=== PATIENT | male | born 1950 | race Caucasian/White ===

== ENCOUNTER 2017-02-27 12:01 | Emergency (ER) | payer MEDICARE ==
[2017-02-27] MEDS ORDERED: SODIUM CHLORIDE FLUSH 0.9% 10 ML SYRINGE IVP ONE (12:36)
[2017-02-27 12:49] LABS: BASOPHILS % (AUTO) 0.7 %; EOSINOPHILS # (AUTO) 0.2 10^3/uL (0.0-0.7); EOSINOPHILS % (AUTO) 7.7 %; HCT - HEMATOCRIT 44.5 % (42.0-52.0); HGB - HEMOGLOBIN 15.2 g/dL (14.0-18.0); LYMPHOCYTES # (AUTO) 0.8 10^3/uL (1.5-3.5); LYMPHOCYTES % (AUTO) 25.7 %; MEAN CORPUSCULAR HEMOGLOBIN 32.2 pg (27.0-31.0); MEAN CORPUSCULAR HGB CONC 34.1 g/dL (32.0-36.0); MEAN CORPUSCULAR VOLUME 94.4 fL (80.0-94.0); MEAN PLATELET VOLUME 8.6 fL (7.4-11.4); MONOCYTES # (AUTO) 0.4 10^3/uL (0.0-1.0); MONOCYTES % (AUTO) 12.2 %; NEUTROPHILS # (AUTO) 1.7 10^3/uL (1.5-6.6); NEUTROPHILS % (AUTO) 53.7 %; NUCLEATED RED BLOOD CELLS AUTO 0.1 /100WBC; RED BLOOD COUNT 4.71 10^6/uL (4.70-6.10); RED CELL DISTRIBUTION WIDTH 12.8 % (12.0-15.0); UNCORRECTED WHITE BLOOD COUNT 3.3 x10^3/uL; WHITE BLOOD COUNT 3.3 x10^3/uL (4.8-10.8)
[2017-02-27 13:00] LABS: ALBUMIN/GLOBULIN RATIO 1.6 (1.0-2.2); BILIRUBIN,TOTAL 0.9 mg/dL (0.2-1.0); CALCIUM 9.3 mg/dL (8.5-10.3); CREATININE 1.1 mg/dL (0.6-1.2); POTASSIUM 3.7 mmol/L (3.5-5.0); TOTAL PROTEIN 7.3 g/dL (6.7-8.2)
--- NOTE | 2017-02-27 13:00 | ED Physician Documentation ---
PD HPI CHEST PAIN - Stated complaint Stated Complaint: CHEST TIGHTNESS - Chief complaint Chief Complaint: Cardiac - History obtained from History obtained from: Patient - History of Present Illness Timing - onset: How many days ago (3-4) Timing - onset during: Light activity (did not have to do much exertion to cause the pressure, and it improved after rest for several minutes.) Timing - details: Now resolved, Intermittant Quality: Pressure, Tightness. No: Sharp, Tearing, Stabbing Location: Substernal Radiation: No: Jaw, Neck, Back, Abdominal, Left upper extremity, Right upper extremity, Other Improved by: Rest Worsened by: Exertion. No: Inspiration, Eating, Movement Associated symptoms: Shortness of air, Other (has been doing some yard work and fair amount of dust the past week. No history of asthma though.) Recently seen: Clinic (chnaged from Atenolol to Metoprolol 50 bid both, 4 days ago. Had been to Dr. [facility] years ago for stress test pre-op prostate surgery. Normal stress at that time.) Review of Systems Constitutional: denies: Fever, Chills Nose: denies: Rhinorrhea / runny nose, Congestion Throat: denies: Sore throat Respiratory: denies: Cough GI: denies: Abdominal Pain, Nausea, Vomiting, Diarrhea : denies: Dysuria, Frequency Skin: denies: Rash, Lesions Musculoskeletal: denies: Neck pain, Back pain, Extremity swelling Neurologic: denies: Generalized weakness, Focal weakness, Numbness Endocrine: denies: Weight loss Immunocompromised: denies: Immunocompromised PD PAST MEDICAL HISTORY - Past Medical History Cardiovascular: Hypertension Respiratory: None Neuro: None Endocrine/Autoimmune: None - Present Medications Home Medications: Ambulatory Orders Medication Instructions Recorded Confirmed Atorvastatin [Lipitor] 40 mg ORAL DAILY 02/27/17 02/27/17 Doxazosin [Cardura] 1 mg PO DAILY 02/27/17 02/27/17 Lansoprazole 30 mg PO DAILY 02/27/17 02/27/17 Lisinopril 5 mg PO DAILY 02/27/17 02/27/17 Metoprolol Tartrate 50 mg PO BID 02/27/17 02/27/17 - Allergies Allergies/Adverse Reactions: Allergies Allergy/AdvReac Type Severity Reaction Status Date / Time Penicillins Allergy Emesis Verified 02/27/17 12:18 Sulfa (Sulfonamide Allergy Emesis Verified 02/27/17 12:18 Antibiotics) - Family History Family history: reports: Non contributory. denies: CAD, Sudden PD ED PE NORMAL - Vitals Vital signs reviewed: Yes - General General: Alert and oriented X 3, No acute distress, Well developed/nourished - Neck Neck: Supple, no meningeal sign, No adenopathy - Cardiac Cardiac: RRR, Other (1/6 murmur left chest without radiation) - Respiratory Respiratory: Clear bilaterally - Abdomen Abdomen: Soft, Non tender - Back Back: No CVA TTP - Derm Derm: Normal color, Warm and dry - Extremities Extremities: No tenderness to palpate, Normal ROM s pain, No edema, No calf tenderness / cord - Neuro Neuro: Alert and oriented X 3, No motor deficit, Normal speech - Psych Psych: Normal mood, Normal affect Results - Vitals Vitals: Vital Signs - 24 hr 02/27/17 02/27/17 12:14 14:08 Temperature 36.1 C L Heart Rate 108 H 90 Respiratory 18 18 Rate Blood Pressure 178/92 H 173/89 H O2 Saturation 98 96 Oxygen O2 Source Room air - EKG (time done) 12:24 Rate: Rate (enter#) (97) Rhythm: NSR Sargent: Normal Intervals: Normal OK Ischemia: Normal ST segments, T wave inversion (inferiorly flattened.). No: ST elevation c/w ischemia, ST depression, Q waves - Labs Labs: Laboratory Tests 02/27/17 02/27/17 02/27/17 12:40 12:40 12:40 WBC 3.3 L RBC 4.71 Hgb 15.2 Hct 44.5 MCV 94.4 H MCH 32.2 H MCHC 34.1 RDW 12.8 Plt Count 110 L MPV 8.6 Neut # 1.7 Lymph # 0.8 L [place] # 0.4 Eos # 0.2 Baso # 0.0 Absolute Nucleated RBC 0.00 Nucleated RBC % 0.1 Sodium 138 Potassium 3.7 Chloride 102 Carbon Dioxide 24 Anion Gap 12.0 BUN 14 Creatinine 1.1 Estimated GFR (MDRD) 67 L Glucose 159 H Calcium 9.3 Total Bilirubin 0.9 AST 31 ALT 48 Alkaline Phosphatase 53 Troponin I < 0.04 Total Protein 7.3 Albumin 4.5 Globulin 2.8 Albumin/Globulin Ratio 1.6 Lipase 36 - Rads (name of study) Chest Radiology: Prelim report reviewed (normal) PD MEDICAL DECISION MAKING - ED course Complexity details: reviewed results, considered differential (new onset exertional chest pressure with mild activity. Concern for angina. Talked with Cardiology at [facility] and they suggest transfer for cardiac testing. ), d /w patient, d/w medical record consultant (Dr. [facility], who defers to Hospitalist, Dr. Kulkarni, who then defers to [facility].) Departure - Departure Disposition: 02 Transfer Acute Care Hosp Clinical Impression: New-onset angina, Crescendo angina Condition: Stable Record reviewed to determine appropriate education?: Yes
--- NOTE | 2017-02-27 13:05 | XRAY Preliminary Report ---
Exam: XR CHEST 1 VIEW IMPRESSION: Negative portable chest. [facility] SITE ID: [id number]
--- NOTE | 2017-02-27 13:08 | XRAY Report ---
EXAM: CHEST RADIOGRAPHY EXAM DATE: 02/27/2017 12:57 PM. CLINICAL HISTORY: Short of breath COMPARISON: None. TECHNIQUE: 1 view. FINDINGS: Lungs/Pleura: No focal opacities evident. No pleural effusion. No pneumothorax. Mediastinum: Within exam limitations, the cardiomediastinal contour is normal. Other: None. IMPRESSION: Negative portable chest. [facility] Referring Provider Line: [phone] SITE ID: [id number]
[2017-02-27 15:42] VITALS: BP 162/80
[2017-02-27] MEDS ORDERED: ASPIRIN CHEW 81 MG TABLET PO STA (16:08)
[2017-02-27] MEDS ORDERED: ASPIRIN CHEW 81 MG TABLET ONE ×2 (16:25→16:29)
== END 2017-02-27 16:43 | disposition short-term general hospital (02) ==
LOC: ED 12:01
DX: I20.0 Unstable angina (principal); I10 Essential (primary) hypertension
CPT/HCPCS: 36415; 71010; 80053; 83690; 84484; 85025; 93005; 99284; 99285; A9270

== ENCOUNTER 2017-02-27 16:49 | Outpatient (CLI) | payer MEDICARE | END 2017-02-27 16:50 | disposition short-term general hospital (02) | LOC: EMS 16:49 | PROVIDERS: ATTEND Surgery | DX: R07.9 Chest pain, unspecified (principal) ==